=== PATIENT | female | born 1995 | race Caucasian/White ===

== ENCOUNTER 2017-06-07 01:04 | Emergency (ER) | payer BC, MEDICAID ==
[~2017-06-07] VITALS: Ht 172.7 cm; Wt 65.0 kg
[~2017-06-07 01:04] MED LIST: METR-1 PO; VITA65TA PO
[2017-06-07 01:06] VITALS: BP 120/59; PULSE 92; RESP 16; TEMP 98.1; O2SAT 99
[2017-06-07] MEDS ORDERED: ACETAMINOPHEN 325 MG TAB PO ONE (01:45)
[2017-06-07] MEDS ORDERED: METOCLOPRAMIDE INJ 10 MG in SODIUM CHLORIDE 0.9% INJ 50 ML IV ONE (01:45)
[2017-06-07] MEDS ORDERED: SODIUM CHLOR 0.9% 1000 ML INJ 1,000 ML IV ONE (01:45)
[2017-06-07 02:30] LABS: BASOPHIL % 0.2 % (0.0-2.0); EOSINOPHIL # 0.2 TH/MM3 (0-0.4); EOSINOPHIL % 1.4 % (0.0-4.0); HEMATOCRIT 38.1 % (35.0-46.0); HEMO FLAGS DIFF FINAL; LYMPH % 13.7 % (9.0-44.0); LYMPHOCYTE # 1.9 TH/MM3 (1.0-4.8); MEAN CELL VOLUME 88.3 FL (80.0-100.0); MEAN CORPUSCULAR HEMOGLOBIN 30.3 PG (27.0-34.0); MEAN CORPUSCULAR HGB CONC 34.3 % (32.0-36.0); MONO % 6.7 % (0.0-8.0); PLATELET COUNT 174 TH/MM3 (150-450); RED BLOOD COUNT 4.32 MIL/MM3 (4.00-5.30); RED CELL DISTRIBUTION WIDTH 12.3 % (11.6-17.2); WHITE BLOOD COUNT 14.1 TH/MM3 (4.0-11.0)
[2017-06-07 02:33] LABS: BACTERIA, URINE MOD /hpf; BLOOD, URINE NEG (NEG); COMMENT (UR) CULTURE INDICATED; CULTURE IF INDICATED CULTURE INDICATED; GLUCOSE,URINE NEG (NEG); KETONE, URINE 40 mg/dL (NEG); NITRITE,URINE NEG (NEG); PH, URINE 6.5 (5.0-8.5); SQUAMOUS EPITHELIAL CELL URINE 11 /hpf (0-5); URINE COLOR YELLOW (YELLW/STRAW)
[2017-06-07 02:49] LABS: ALT (GPT) 51 U/L (10-53); ANION GAP 8 MEQ/L (5-15); AST (GOT) 33 U/L (15-37); BICARBONATE 27.3 MEQ/L (21.0-32.0); BLOOD UREA NITROGEN 5 MG/DL (7-18); CHLORIDE 101 MEQ/L (98-107); GLOMERULAR FILTRATION RATE 201 ML/MIN (>89); POTASSIUM 3.4 MEQ/L (3.5-5.1); SODIUM (NA) 136 MEQ/L (136-145)
[2017-06-07 02:51] LABS: ALKALINE PHOSPHATASE 65 U/L (45-117); TOTAL BILIRUBIN ADULT 0.5 MG/DL (0.2-1.0)
[2017-06-07] MEDS ORDERED: AMOX875T PO (03:17)
--- NOTE | 2017-06-07 03:17 | PD ---
HPI Chief Complaint: GI Complaint Time Seen by Provider: : Travel History International Travel<30 days: No Contact w/Intl Traveler<30days: No Traveled to known affect area: No History of Present Illness HPI Patient is a 22-year-old female, 16 weeks , who comes in complaining of sore throat, body aches, enlarged lymph nodes. She says this is been going on for the past day. She also reports nausea and vomiting. She denies cough or runny nose. She has not had any chest pain. She has felt chilled, but has not had any fever. She denies any abdominal pain, vaginal bleeding or leakage of fluids. PFSH Past Medical History Immunizations Current: Yes Tetanus Vaccination: > 5 Years Influenza Vaccination: No ?: Social History Alcohol Use: No Tobacco Use: No Substance Use: No Allergies-Medications (Allergen,Severity, Reaction): Coded Allergies: No Known Allergies (Verified Adverse Reaction, Unknown, 06/07/17) Reported Meds & Prescriptions Reported Meds & Active Scripts Active Vitafol-Ob ( Vit W/ Ferrous Fumara) 65 Mg-1 Mg Tab 1 Tab PO DAILY 30 Days Flagyl (Metronidazole) 500 Mg Tab 500 Mg PO BID Review of Systems Except as stated in HPI: all other systems reviewed are Neg General / Constitutional: Positive: Chills HENT: Positive: Sore Throat, No: Headaches, Lightheadedness Cardiovascular: No: Chest Pain or Discomfort Respiratory: No: Shortness of Breath Gastrointestinal: Positive: Nausea, Vomiting, No: Abdominal Pain Genitourinary: No: Discharge, Vaginal Bleeding Musculoskeletal: No: Weakness, Edema Skin: No Rash, No Change in Pigmentation Neurologic: No: Weakness, Dizziness Physical Exam Narrative GENERAL: Awake and alert, in no acute distress. SKIN: Focused skin assessment warm/dry. HEAD: Atraumatic. Normocephalic. EYES: Pupils equal and round. No scleral icterus. ENT: Tonsils enlarged with exudates present. Mucous membranes pink and moist. NECK: Trachea midline. No JVD. Right sided anterior cervical lymphadenopathy. CARDIOVASCULAR: Regular rate and rhythm. No murmur appreciated. RESPIRATORY: No accessory muscle use. Clear to auscultation. Breath sounds equal bilaterally. GASTROINTESTINAL: Abdomen soft, non-tender, nondistended. MUSCULOSKELETAL: No obvious deformities. No clubbing. No cyanosis. No edema. NEUROLOGICAL: Awake and alert. No obvious cranial nerve deficits. Motor grossly within normal limits. Normal speech. PSYCHIATRIC: Appropriate mood and affect; insight and judgment normal. Data Data Last Documented VS Vital Signs Date Time Temp Pulse Resp B/P (MAP) Pulse Ox O2 Delivery O2 Flow Rate FiO2 06/07/17 01:06 98.1 92 16 120/59 (79) 99 Room Air Orders Orders Iv Access Insert/Monitor (06/07/17 01:43) Complete Blood Count With Diff (06/07/17:43) Comprehensive Metabolic Panel (06/07/17 01:43) Urinalysis - C+S If Indicated (06/07/17:43) Ed Urine Pregnancytest Poc (06/07/17:43) Influenzae A/B Antigen (06/07/17:43) Group A Rapid Strep Screen (06/07/17:43) Sodium Chlor 0.9% 1000 Ml Inj (Ns 1000 M (06/07/17 01:45) Acetaminophen (Tylenol) (06/07/17 01:45) Metoclopramide Inj (Reglan Inj) (06/07/17 01:45) Urine Culture (06/07/17 02:00) Labs Laboratory Tests Test 06/07/17 02:00 White Blood Count 14.1 TH/MM3 Red Blood Count 4.32 MIL/MM3 Hemoglobin 13.1 GM/DL Hematocrit 38.1 % Mean Corpuscular Volume 88.3 FL Mean Corpuscular Hemoglobin 30.3 PG Mean Corpuscular Hemoglobin Concent 34.3 % Red Cell Distribution Width 12.3 % Platelet Count 174 TH/MM3 Mean Platelet Volume 8.5 FL Neutrophils (%) (Auto) 78.0 % Lymphocytes (%) (Auto) 13.7 % Monocytes (%) (Auto) 6.7 % Eosinophils (%) (Auto) 1.4 % Basophils (%) (Auto) 0.2 % Neutrophils # (Auto) 11.0 TH/MM3 Lymphocytes # (Auto) 1.9 TH/MM3 Monocytes # (Auto) 0.9 TH/MM3 Eosinophils # (Auto) 0.2 TH/MM3 Basophils # (Auto) 0.0 TH/MM3 CBC Comment DIFF FINAL Differential Comment Urine Color YELLOW Urine Turbidity HAZY Urine pH 6.5 Urine Specific [place] 1.010 Urine Protein NEG mg/dL Urine Glucose (UA) NEG mg/dL Urine Ketones 40 mg/dL Urine Occult Blood NEG Urine Nitrite NEG Urine Bilirubin NEG Urine Urobilinogen LESS THAN 2.0 MG/DL Urine Leukocyte Esterase NEG Urine RBC 1 /hpf Urine WBC 3 /hpf Urine Squamous Epithelial Cells 11 /hpf Urine Bacteria MOD /hpf Microscopic Urinalysis Comment CULTURE INDICATED Blood Urea Nitrogen 5 MG/DL Creatinine 0.40 MG/DL Random Glucose 78 MG/DL Total Protein 6.5 GM/DL Albumin 3.2 GM/DL Calcium Level 8.3 MG/DL Alkaline Phosphatase 65 U/L Aspartate Amino Transf (AST/SGOT) 33 U/L Alanine Aminotransferase (ALT/SGPT) 51 U/L Total Bilirubin 0.5 MG/DL Sodium Level 136 MEQ/L Potassium Level 3.4 MEQ/L Chloride Level 101 MEQ/L Carbon Dioxide Level 27.3 MEQ/L Anion Gap 8 MEQ/L Estimat Glomerular Filtration Rate 201 ML/MIN [facility] Medical Decision Making Medical Screen Exam Complete: Yes Emergency Medical Condition: Yes Medical Record Reviewed: Yes Differential Diagnosis UTI versus strep pharyngitis versus influenza Narrative Course Patient is a 22-year-old female, 16 weeks , who comes in complaining of sore throat, nausea or vomiting. Exam shows enlarged tonsils with exudates. IV status, labs sent. Patient given IV fluids, Reglan, Tylenol. Labs show an elevated white blood cell count 14. Rapid strep test is positive. Influenza swab is negative. Patient reports feeling better. She'll be discharged with a prescription for amoxicillin. She is advised follow-up with her doctor. Advised to return to the ED as needed for any worsening symptoms. Diagnosis Primary Impression: Strep pharyngitis Patient Instructions: General Instructions, Strep Throat (ED) Additional Instructions: Take all of your antibiotic. Drink plenty of fluids. Take Tylenol as needed for pain or fever. Follow-up with her doctor. Return to the ED as needed for any worsening symptoms. Scripts Amoxicillin (Amoxicillin) 875 Mg Tab 875 MG PO BID for Infection for 10 Days, #20 TAB 0 Refills Prov: Farhana Mace MD 06/07/17 Disposition: DISCHARGE HOME Condition: Stable Farhana Mace MD Jun 07, 2017 03:17
== END 2017-06-07 03:49 | disposition home or self-care (01) ==
LOC: NEPE 01:04
DX: O26.892 Other specified pregnancy related conditions, second trimester (principal); J02.0 Streptococcal pharyngitis; O21.9 Vomiting of pregnancy, unspecified; Z3A.16 16 weeks gestation of pregnancy; Z79.899 Other long term (current) drug therapy
CPT/HCPCS: 80053; 81001; 84703; 85025; 87086; 87804; 87880; 96365; 99284; J2765; J7030

== ENCOUNTER 2017-06-20 13:21 | Inpatient (IN) | payer MEDICAID, OTHER ==
[~2017-06-20] VITALS: Ht 172.7 cm; Wt 63.5 kg
[~2017-06-20 13:21] MED LIST changes: +AMOX875T PO
[2017-06-20 13:40] VITALS: BP 108/58; PULSE 92; RESP 16; TEMP 97.8; O2SAT 100
[2017-06-20] MEDS ORDERED: PROZ20CA11 PO (13:41)
[2017-06-20 14:25] LABS: AUTOMATED NEUTROPHIL # 8.2 TH/MM3 (1.8-7.7); BASOPHIL % 0.3 % (0.0-2.0); EOSINOPHIL # 0.1 TH/MM3 (0-0.4); EOSINOPHIL % 1.3 % (0.0-4.0); HEMATOCRIT 37.3 % (35.0-46.0); HEMO FLAGS DIFF FINAL; LYMPH % 17.8 % (9.0-44.0); MEAN CELL VOLUME 90.1 FL (80.0-100.0); MEAN CORPUSCULAR HEMOGLOBIN 31.4 PG (27.0-34.0); MEAN CORPUSCULAR HGB CONC 34.9 % (32.0-36.0); MONO % 7.3 % (0.0-8.0); NEUT % 73.3 % (16.0-70.0); PLATELET COUNT 197 TH/MM3 (150-450); RED BLOOD COUNT 4.14 MIL/MM3 (4.00-5.30); RED CELL DISTRIBUTION WIDTH 13.1 % (11.6-17.2); WHITE BLOOD COUNT 11.2 TH/MM3 (4.0-11.0)
[2017-06-20 14:28] LABS: BACTERIA, URINE RARE /hpf; BLOOD, URINE NEG (NEG); GLUCOSE,URINE NEG (NEG); KETONE, URINE TRACE mg/dL (NEG); MUCUS URINE FEW /lpf (OCC); NITRITE,URINE NEG (NEG); PH, URINE 5.5 (5.0-8.5); SQUAMOUS EPITHELIAL CELL URINE 19 /hpf (0-5); TRANSITIONAL EPI CELLS, URINE <1 /hpf; URINE COLOR YELLOW (YELLW/STRAW)
[2017-06-20 14:30] LABS: COMMENT (UR) CULT NOT INDICATED; CULTURE IF INDICATED CULT NOT INDICATED
[2017-06-20 14:45] LABS: ALT (GPT) 178 U/L (10-53); ANION GAP 7 MEQ/L (5-15); AST (GOT) 128 U/L (15-37); BICARBONATE 26.5 MEQ/L (21.0-32.0); BLOOD UREA NITROGEN 6 MG/DL (7-18); CHLORIDE 103 MEQ/L (98-107); GLOMERULAR FILTRATION RATE 207 ML/MIN (>89); POTASSIUM 3.8 MEQ/L (3.5-5.1); SODIUM (NA) 136 MEQ/L (136-145)
[2017-06-20 14:47] LABS: ALCOHOL LESS THAN 3 MG/DL (0-5)
[2017-06-20 15:02] LABS: ALKALINE PHOSPHATASE 51 U/L (45-117); BETA HCG QUANT 18306 MIU/ML (0-5); TOTAL BILIRUBIN ADULT 0.3 MG/DL (0.2-1.0)
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
--- NOTE | 2017-06-20 17:53 | PD ---
History of Present Illness Chief Complaint: Psychiatric Symptoms Time Seen by Provider: 17:30 Travel History International Travel<30 Days: No Contact w/Intl Traveler<30days: No Known affected area: No Legal Status Legal Status: Hernandez Act Hernandez Act Signed By: Asael Skelton Hernandez Act Comment: OFFICER: SARMAD PARR # [id number], CASE # [id number] History of Present Illness: History of Present Illness HPI 22-year-old female with reported history of depression and anxiety who is reportedly 18 weeks . She is brought in by local police under the Hernandez act for reported suicidal ideation. She reportedly wanted to cut her wrists due to life stressors. The Hernandez act also alleges that there is suspicion that she has been using narcotics. Patient reports that she has been having financial stressors and is behind in her rent, car payment and that she has recently lost her job. She states that she called her father to ask for him to his help and that she was emotional during the call. The father then contacted the police and the police placed her under Hernandez act. The patient is seen. Electronic medical record is reviewed. No previous contact with [facility] psychiatry. Labs are reviewed. Current toxicology is positive for amphetamines, benzos, cocaine, cannabinoids. The patient is seen in J pod. She is alert and oriented. There is no evidence of any psychosis, no joselyn, or hypomania. She denies any suicidal or homicidal ideation. She denies feeling depressed or anxious. She denies the use of any narcotics and becomes extremely agitated when she is confronted with her toxicology report. The patient demands to be released but gives authorization for me to speak with her father and her mother. Telephone call to her mother, Urban at [phone] with patient's verbal consent. Mother reports that the patient has struggled with depression and anxiety since her teenage years. She has been prescribed Prozac but that she has stopped taking it for several months. Mom also reports that she is concerned over the patient since she has told everyone that she wanted to . Mother also reports that she is aware that the patient takes Xanax that she purchases from friends. Telephone call to her father Akira Cr. The father reports that he believes his daughter has been spiraling out of control for the last 2 weeks. That she has told several people that she wants to harm herself. She also disappears for several days at a time and they are not aware where of her whereabouts. He is concerned and is aware that she may be using substances. The father is advised regarding options including filing a [place] act. PFSH Past Medical History Anxiety: Yes Depression: Yes Psychiatric: Yes Immunizations Current: Yes Tetanus Vaccination: < 5 Years Influenza Vaccination: No ?: LMP: 02/26/17 : 1 Past Surgical History Surgical History: No Previous Surgery Psychiatric History Psychiatric History Hx Psychiatric Treatment: PT STATES SHE HAS ANXIETY AND HAS BEEN ON PROZAC FOR YEARS. PT STATES SHE TAKES MEDS PRESCRIBED. History of Inpatient Treatment: No Guns or firearms in home: No Social History Single female. Lives with her boyfriend. 18-1/2 weeks . Has completed an AA degree. Hx Alcohol Use: No Hx Tobacco Use: No (QUIT 3 MONTHS AGO) Hx Substance Use: Yes Substance Use Type: Alcohol, Marijuana, Amphetamines-Stimulants, Benzos (Valium ,Xanax), Cocaine Hx of Substance Use Treatment: No Family Psychiatric History Unknown Allergies-Medications (Allergen,Severity, Reaction): Coded Allergies: No Known Allergies (Verified Adverse Reaction, Unknown, 06/20/17) Reported Meds & Prescriptions Reported Meds & Active Scripts Active Vitafol-Ob ( Vit W/ Ferrous Fumara) 65 Mg-1 Mg Tab 1 Tab PO DAILY 30 Days Reported Prozac (Fluoxetine HCl) 20 Mg Cap 20 Mg PO DAILY Review of Systems Except as stated in HPI: all other systems reviewed are Neg Mental Status Examination Appearance: Appropriate Consciousness: Alert Orientation: x4 Motor Activity: Normal gait Speech: Unremarkable Language: Adequate Fund of Knowledge: Adequate Attention and Concentration: Adequate Memory: Unremarkable Mood: Appropriate Affect: Appropriate Thought Process & Associations: Intact Thought Content: Appropriate Hallucination Type: None Delusion Type: None Suicidal Ideation: No Suicidal Plan: No Suicidal Intention: No Homicidal Ideation: No Homicidal Plan: No Homicidal Intention: No Insight: Poor Judgment: Impulsive MDM Medical Decision Making Medical Record Reviewed: Yes Assessment/Plan 22-year-old female with history of depression who presents under Hernandez act initiated after her father contacted the police department. The father is concerned because the patient has made suicidal statements that she wanted to cut her wrists. There is also suspicion of narcotic use. The patient denies any suicidal or homicidal ideation. After collateral information was obtained and after results of current toxicology patient was informed that she was going to be retained here for further observation as well as to attempt to get her into [facility] detox. After patient was informed of this she became agitated, began to bang her head against the wall, was yelling and screaming, and makes verbal threats that she would kill herself while she is the hospital. Dr. Yousif is present and gave orders for ETO. Patient was placed in restraints due to potential for self injury. Orders Orders Beta Hcg (Quant/Titer) (06/20/17 13:45) Complete Blood Count With Diff (06/20/17 13:45) Comprehensive Metabolic Panel (06/20/17 13:45) Urinalysis - C+S If Indicated (06/20/17 13:45) Ecg Monitoring (06/20/17 13:45) Drug Screen, Random Urine (06/20/17 13:45) Alcohol (Ethanol) (06/20/17 13:45) Psych Screen (06/20/17 13:45) Complete Rh (06/20/17 14:34) Heart Tones (06/20/17 14:34) Results Vital Signs Date Time Temp Pulse Resp B/P (MAP) Pulse Ox O2 Delivery O2 Flow Rate FiO2 06/20/17 13:53 89 16 06/20/17 13:40 97.8 92 16 108/58 (75) 100 Laboratory Tests Test 06/20/17 13:55 White Blood Count 11.2 Red Blood Count 4.14 Hemoglobin 13.0 Hematocrit 37.3 Mean Corpuscular Volume 90.1 Mean Corpuscular Hemoglobin 31.4 Mean Corpuscular Hemoglobin Concent 34.9 Red Cell Distribution Width 13.1 Platelet Count 197 Mean Platelet Volume 8.8 Neutrophils (%) (Auto) 73.3 Lymphocytes (%) (Auto) 17.8 Monocytes (%) (Auto) 7.3 Eosinophils (%) (Auto) 1.3 Basophils (%) (Auto) 0.3 Neutrophils # (Auto) 8.2 Lymphocytes # (Auto) 2.0 Monocytes # (Auto) 0.8 Eosinophils # (Auto) 0.1 Basophils # (Auto) 0.0 CBC Comment DIFF FINAL Differential Comment Urine Color YELLOW Urine Turbidity HAZY Urine pH 5.5 Urine Specific [place] 1.020 Urine Protein 30 Urine Glucose (UA) NEG Urine Ketones TRACE Urine Occult Blood NEG Urine Nitrite NEG Urine Bilirubin NEG Urine Urobilinogen LESS THAN 2.0 Urine Leukocyte Esterase NEG Urine RBC 1 Urine WBC 3 Urine Squamous Epithelial Cells 19 Urine Transitional Epithelial Cells <1 Urine Bacteria RARE Urine Mucus FEW Microscopic Urinalysis Comment CULT NOT INDICATED Blood Urea Nitrogen 6 Creatinine 0.39 Random Glucose 76 Total Protein 6.7 Albumin 3.2 Calcium Level 9.0 Alkaline Phosphatase 51 Aspartate Amino Transf (AST/SGOT) 128 Alanine Aminotransferase (ALT/SGPT) 178 Total Bilirubin 0.3 Sodium Level 136 Potassium Level 3.8 Chloride Level 103 Carbon Dioxide Level 26.5 Anion Gap 7 Estimat Glomerular Filtration Rate 207 Human Chorionic Gonadotropin, Quant [id number] Ethyl Alcohol Level LESS THAN 3 Diagnosis Primary Impression: Substance abuse Additional Impression: Adjustment disorder with mixed disturbance of emotions and conduct Condition: Stable Problem Qualifiers Luz Thomason [facility] Jun 20, 2017 17:53
[2017-06-20] MEDS ORDERED: diphenhydrAMINE HCL 50 MG/ML VIAL IM ONE (20:30)
[2017-06-20] MEDS ORDERED: ZIPRASIDONE MESYLATE 20 MG VIAL IM ONE (20:30)
--- NOTE | 2017-06-20 20:36 | HHI.PYPN ---
Subjective Remarks Pt. seen by this MD approx 830pm. Banging her head, highly agitated. Placed in restraints. This MD Called Dr. Goins to discuss chemical restraints and ordered Geodon and Benadryl IM. Pt. noted to be positive for benzos, opiates, amphetamines and canabanoids. Review of Systems Psychiatric: COMPLAINS OF: Anxiety, Agitation Except as stated in HPI: all other systems reviewed are Neg Mental Status Examination Appearance: Disheveled, Other Consciousness: Alert Orientation: x4 Motor Activity: Normal gait Speech: Unremarkable Language: Adequate Fund of Knowledge: Adequate Attention and Concentration: Adequate Memory: Unremarkable Mood: Angry Affect: Labile Thought Process & Associations: Intact Thought Content: Appropriate Hallucination Type: None Delusion Type: None Suicidal Ideation: No Suicidal Plan: No Suicidal Intention: No Homicidal Ideation: No Homicidal Plan: No Homicidal Intention: No Insight: Poor Judgment: Poor Results Labs Test 06/20/17 13:55 White Blood Count 11.2 TH/MM3 Red Blood Count 4.14 MIL/MM3 Hemoglobin 13.0 GM/DL Hematocrit 37.3 % Mean Corpuscular Volume 90.1 FL Mean Corpuscular Hemoglobin 31.4 PG Mean Corpuscular Hemoglobin Concent 34.9 % Red Cell Distribution Width 13.1 % Platelet Count 197 TH/MM3 Mean Platelet Volume 8.8 FL Neutrophils (%) (Auto) 73.3 % Lymphocytes (%) (Auto) 17.8 % Monocytes (%) (Auto) 7.3 % Eosinophils (%) (Auto) 1.3 % Basophils (%) (Auto) 0.3 % Neutrophils # (Auto) 8.2 TH/MM3 Lymphocytes # (Auto) 2.0 TH/MM3 Monocytes # (Auto) 0.8 TH/MM3 Eosinophils # (Auto) 0.1 TH/MM3 Basophils # (Auto) 0.0 TH/MM3 CBC Comment DIFF FINAL Differential Comment Urine Color YELLOW Urine Turbidity HAZY Urine pH 5.5 Urine Specific [place] 1.020 Urine Protein 30 mg/dL Urine Glucose (UA) NEG mg/dL Urine Ketones TRACE mg/dL Urine Occult Blood NEG Urine Nitrite NEG Urine Bilirubin NEG Urine Urobilinogen LESS THAN 2.0 MG/DL Urine Leukocyte Esterase NEG Urine RBC 1 /hpf Urine WBC 3 /hpf Urine Squamous Epithelial Cells 19 /hpf Urine Transitional Epithelial Cells <1 /hpf Urine Bacteria RARE /hpf Urine Mucus FEW /lpf Microscopic Urinalysis Comment CULT NOT INDICATED Blood Urea Nitrogen 6 MG/DL Creatinine 0.39 MG/DL Random Glucose 76 MG/DL Total Protein 6.7 GM/DL Albumin 3.2 GM/DL Calcium Level 9.0 MG/DL Alkaline Phosphatase 51 U/L Aspartate Amino Transf (AST/SGOT) 128 U/L Alanine Aminotransferase (ALT/SGPT) 178 U/L Total Bilirubin 0.3 MG/DL Sodium Level 136 MEQ/L Potassium Level 3.8 MEQ/L Chloride Level 103 MEQ/L Carbon Dioxide Level 26.5 MEQ/L Anion Gap 7 MEQ/L Estimat Glomerular Filtration Rate 207 ML/MIN Human Chorionic Gonadotropin, Quant 08689 MIU/ML Urine Opiates Screen NEG Urine Barbiturates Screen NEG Urine Amphetamines Screen POS Urine Benzodiazepines Screen POS Urine Cocaine Screen POS Urine Cannabinoids Screen POS Ethyl Alcohol Level LESS THAN 3 MG/DL Vitals/IOs Vital Signs Date Time Temp Pulse Resp B/P (MAP) Pulse Ox O2 Delivery O2 Flow Rate FiO2 06/20/17 13:53 89 16 06/20/17 13:40 97.8 108/58 (75) 100 Assessment & Plan Problem List: (1) Adjustment disorder with mixed disturbance of emotions and conduct ICD Codes: F43.25 - Adjustment disorder with mixed disturbance of emotions and conduct Assessment & Plan Estimated LOS: Will utilize restraints and meds to keep pt. safe. Justification for Cont. Inpt. Danger to self and unborn child. Anthony Yousif MD Jun 20, 2017 20:35
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
[2017-06-20 21:02] VITALS: BP 108/56; PULSE 101; RESP 18; TEMP 98.4; O2SAT 99
[2017-06-21 02:00] VITALS: BP 91/53; PULSE 87; RESP 16; O2SAT 99
[2017-06-21 05:58] VITALS: BP 92/50; PULSE 98; RESP 16; O2SAT 98
[2017-06-21] MEDS ORDERED: MULTIVIT/MIN/PREN/FOL AC/IRON PRENATAL TAB PO ONE (09:45)
[2017-06-21] MEDS ORDERED: LORazepam 1 MG TAB PO PRN (10:30)
[2017-06-21] MEDS ORDERED: ALUMINUM/MAGNESIUM/SIMETH 30 ML CUP PO PRN (10:30)
[2017-06-21] MEDS ORDERED: MAGNESIUM HYDROXIDE SUSP 30 ML CUP PO PRN (10:30)
[2017-06-21] MEDS ORDERED: ACETAMINOPHEN 325 MG TAB PO PRN (10:30)
[2017-06-21] MEDS ORDERED: LORazepam 2 MG/ML VIAL IM PRN (10:30)
--- NOTE | 2017-06-21 11:35 | HHI.HP ---
Provisional Diagnosis Admission Date Jun 21, 2017 at 10:32 [place] I. Adjustment disorder with mixed disturbance of emotion and conduct Certification of Person's Competence To Provide Express and Informed Consent I have personally examined Marta Cr , a person being served at [facility] on, Jun 21, 2017 11:27. Express and informed consent means consent voluntarily given in writing, by a competent person, after sufficient explanation and disclosure of the subject matter involved to enable the person to make a knowing and willful decision without any element of force, fraud, deceit, duress, or other form of constraint or coercion. This person is 18 years of age or older, is not now known to be incompetent to consent to treatment with a guardian advocate, and does not have a health care surrogate or proxy currently making medical treatment decisions. I have found this person to be one of the following: [x] Competent to provide express and informed consent, as defined above, for voluntary admission to this facility and is competent to provide express and informed consent for treatment. He/she has the consistent capacity to make well reasoned, willful, and knowing decisions concerning his or her medical or mental health treatment. The person fully and consistently understands the purpose of the admission for examination/placement and is fully capable of personally exercising all rights assured [place] Incompetent to provide express and informed consent to voluntary admission, and this is incompetent to provide express and informed consent to treatment. The person must be transferred to involuntary status and a petition for a guardian advocate filed with the Circuit Court. [] Refusing to provide express and informed consent to voluntary admission but is competent to provide express and informed consent for treatment. The person must be discharged or transferred to involuntary status. Form shall be completed within 24 hours of a person's arrival at the receiving facility and filed in the clinical record of each person: 1. Admitted on a voluntary basis 2. Permitted to provide express and informed consent to his/her own treatment 3. Allowed to transfer from involuntary to voluntary status 4. Prior to permitting a person to consent to his or her own treatment after having been previously found incompetent to consent to treatment. History of Present Illness Capacity: Has Capacity HPI 22-year-old female 8 weeks , brought in under a Hernandez act completed by law enforcement after making suicidal threats to cut her wrists. Patient apparently has multiple stressors including financial stressors, housing stressors, possible loss of job, etc. According to the patient's father, she has been letting him and others know that she is suicidal. Our nurse practitioner, Luz Thomason, spoke with the patient's mother, who reiterated this same information. This physician saw the patient last night when she was very upset and very agitated about being Hernandez acted, and was physically banging her head against the wall. She required both physical and chemical restraints. The patient's toxicology screen is positive for benzodiazepines, amphetamine, cocaine, and cannabinoids. The patient described multiple symptoms of depression, including depressed mood , anhedonia, anxiety, suicidal ideation with plan, diminished self-esteem, feelings of hopelessness and helplessness, diminished energy, tearfulness, etc. these symptoms have been going on for several weeks and the patient characterizes them as "pre- depression". Review of Systems Psychiatric: COMPLAINS OF: Anxiety, Depression, Suicidal Ideation Except as stated in HPI: all other systems reviewed are Neg Past Psych History Psychological trauma history Patient reports some history of psychological trauma in the past. She has declined to provide details. Violence risk - others (6 mos) Moderate Violence risk - self (6 mos) High Substance Abuse History Drugs/Alcohol past 12 months Cocaine, amphetamines, benzos and cannabinoids. Patient has apparently been buying Xanax. Past Family Social History Coded Allergies: No Known Allergies (Verified Adverse Reaction, Unknown, 06/20/17) Active Scripts Vit W/ Ferrous Fumara (Vitafol-Ob) 65 Mg-1 Mg Tab, 1 TAB PO DAILY for 30 Days, #30 TAB 3 Refills Prov:Vidhya Prather CNM [facility] 05/25/17 Reported Medications Fluoxetine (Prozac) 20 Mg Cap, 20 MG PO DAILY, #30 CAP 0 Refills 06/20/17 Discontinued Scripts Amoxicillin (Amoxicillin) 875 Mg Tab, 875 MG PO BID for Infection for 10 Days, # 20 TAB 0 Refills Prov:Farhana Mace MD 06/07/17 Metronidazole (Flagyl) 500 Mg Tab, 500 MG PO BID for Infection, #14 TAB 0 Refills Prov:Vidhya Prather CNM [facility] 05/25/17 Current Medications Medications (Trade) Dose Ordered Sig/Zan Route Start Time Stop Time Status Last Admin (Ativan) 1 mg Q6H PRN PO 06/21/17 10:30 (Ativan Inj) 1 mg Q6H PRN IM 06/21/17 10:30 (Tylenol) 650 mg Q4H PRN PO 06/21/17 10:30 (Milk Of Magnesia Liq) 30 ml DAILY PRN PO 06/21/17 10:30 (Mag-Al Plus Susp Liq) 30 ml Q6H PRN PO 06/21/17 10:30 Family Psych History Positive for mood and anxiety disorders. Social History Patient fears she is now unemployed, being evicted and without money. She has contacted her parents for assistance but father was concerned about her suicidal threats, as was mother. Obviously the patient is abusing multiple drugs. 18 weeks intrauterine and patient was evaluated yesterday. Patient's Strengths (min. 2) Verbal and has access to healthcare Physical Exam GENERAL: SKIN: Warm and dry. HEAD: Normocephalic. EYES: No scleral icterus. No injection or drainage. NECK: Supple, trachea midline. No JVD or lymphadenopathy. CARDIOVASCULAR: Regular rate and rhythm without murmurs, gallops, or rubs. RESPIRATORY: Breath sounds equal bilaterally. No accessory muscle use. GASTROINTESTINAL: Abdomen soft, non-tender, nondistended. MUSCULOSKELETAL: No cyanosis, or edema. BACK: Nontender without obvious deformity. No CVA tenderness. Vital Signs Vital Signs Date Time Temp Pulse Resp B/P (MAP) Pulse Ox O2 Delivery O2 Flow Rate FiO2 06/21/17 05:58 98 16 92/50 (64) 98 Room Air 06/20/17 21:02 98.4 Lab Results Test 06/20/17 13:55 White Blood Count 11.2 TH/MM3 Red Blood Count 4.14 MIL/MM3 Hemoglobin 13.0 GM/DL Hematocrit 37.3 % Mean Corpuscular Volume 90.1 FL Mean Corpuscular Hemoglobin 31.4 PG Mean Corpuscular Hemoglobin Concent 34.9 % Red Cell Distribution Width 13.1 % Platelet Count 197 TH/MM3 Mean Platelet Volume 8.8 FL Neutrophils (%) (Auto) 73.3 % Lymphocytes (%) (Auto) 17.8 % Monocytes (%) (Auto) 7.3 % Eosinophils (%) (Auto) 1.3 % Basophils (%) (Auto) 0.3 % Neutrophils # (Auto) 8.2 TH/MM3 Lymphocytes # (Auto) 2.0 TH/MM3 Monocytes # (Auto) 0.8 TH/MM3 Eosinophils # (Auto) 0.1 TH/MM3 Basophils # (Auto) 0.0 TH/MM3 CBC Comment DIFF FINAL Differential Comment Urine Color YELLOW Urine Turbidity HAZY Urine pH 5.5 Urine Specific [place] 1.020 Urine Protein 30 mg/dL Urine Glucose (UA) NEG mg/dL Urine Ketones TRACE mg/dL Urine Occult Blood NEG Urine Nitrite NEG Urine Bilirubin NEG Urine Urobilinogen LESS THAN 2.0 MG/DL Urine Leukocyte Esterase NEG Urine RBC 1 /hpf Urine WBC 3 /hpf Urine Squamous Epithelial Cells 19 /hpf Urine Transitional Epithelial Cells <1 /hpf Urine Bacteria RARE /hpf Urine Mucus FEW /lpf Microscopic Urinalysis Comment CULT NOT INDICATED Blood Urea Nitrogen 6 MG/DL Creatinine 0.39 MG/DL Random Glucose 76 MG/DL Total Protein 6.7 GM/DL Albumin 3.2 GM/DL Calcium Level 9.0 MG/DL Alkaline Phosphatase 51 U/L Aspartate Amino Transf (AST/SGOT) 128 U/L Alanine Aminotransferase (ALT/SGPT) 178 U/L Total Bilirubin 0.3 MG/DL Sodium Level 136 MEQ/L Potassium Level 3.8 MEQ/L Chloride Level 103 MEQ/L Carbon Dioxide Level 26.5 MEQ/L Anion Gap 7 MEQ/L Estimat Glomerular Filtration Rate 207 ML/MIN Human Chorionic Gonadotropin, Quant 52405 MIU/ML Urine Opiates Screen NEG Urine Barbiturates Screen NEG Urine Amphetamines Screen POS Urine Benzodiazepines Screen POS Urine Cocaine Screen POS Urine Cannabinoids Screen POS Ethyl Alcohol Level LESS THAN 3 MG/DL Mental Status Examination Appearance: Appropriate Consciousness: Alert Orientation: x4 Motor Activity: Normal gait Speech: Unremarkable Language: Adequate Fund of Knowledge: Adequate Attention and Concentration: Adequate Memory: Unremarkable Mood: Sad, Anxious, Irritable Affect: Appropriate Thought Process & Associations: Intact Thought Content: Appropriate Hallucination Type: None Delusion Type: None Suicidal Ideation: Yes Suicidal Plan: Yes Suicidal Intention: No Homicidal Ideation: No Homicidal Plan: No Homicidal Intention: No Insight: Poor Judgment: Impulsive Assessment & Plan Problem List: (1) Adjustment disorder with mixed disturbance of emotions and conduct ICD Codes: F43.25 - Adjustment disorder with mixed disturbance of emotions and conduct Assessment & Plan Estimated LOS: days. 22-year-old female brought in under a Hernandez act for suicidal behavior. Patient abusing drugs while in the initial term of . Patient making suicidal threats and has multiple stressors. She is felt to be at high risk for self-harm and certainly her drug use is harmful to the unborn child. For these reasons she is being admitted for further evaluation and treatment. This physician also spoke with Dr. Odilia morocho about the possibility of the patient entering project [place]. Dr. Naima mroocho will consult on this case. This physician has ordered a CBC and comprehensive metabolic panel to determine if any infectious process or metabolic process is causing or contributing to the patient's depression. Additionally, this physician ordered a thyroid- stimulating hormone level, vitamin B-12 level and vitamin D level, again to determine if any deficiencies in these areas is causing or contributing to the patient's depression. This physician has also ordered an EKG to determine the patient's cardiac conduction status, prior to making any significant changes in her psychotropic medicines. This physician spoke to the patient's nurse last night, Katelin, regarding the patient's behavior. Case management is also being involved to assist with further information gathering and disposition planning. Anthony Yousif MD Jun 21, 2017 11:35
[2017-06-21 12:12] VITALS: BP 101/54; PULSE 94; RESP 18; TEMP 97.7; O2SAT 98
[2017-06-21 16:54] VITALS: BP 133/60; PULSE 94; RESP 18; TEMP 98.1; O2SAT 98
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
[2017-06-21] MEDS: MULTIVIT/MIN/PREN/FOL AC/IRON PRENATAL TAB PO SCH (18:45)
[2017-06-22 06:40] VITALS: BP 104/48; PULSE 72; RESP 16; TEMP 98; O2SAT 96
[2017-06-22] MEDS: MULTIVIT/MIN/PREN/FOL AC/IRON PRENATAL TAB PO SCH (09:00)
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
[2017-06-22 18:00] VITALS: BP 107/57; PULSE 94; RESP 20; TEMP 98.5; O2SAT 94
[2017-06-23 06:07] VITALS: BP 95/46; PULSE 82; RESP 16; TEMP 98.3
[2017-06-23 08:00] LABS: AUTOMATED NEUTROPHIL # 6.4 TH/MM3 (1.8-7.7); BASOPHIL % 0.3 % (0.0-2.0); EOSINOPHIL # 0.2 TH/MM3 (0-0.4); EOSINOPHIL % 1.6 % (0.0-4.0); HEMATOCRIT 37.8 % (35.0-46.0); HEMO FLAGS DIFF FINAL; LYMPH % 22.1 % (9.0-44.0); LYMPHOCYTE # 2.1 TH/MM3 (1.0-4.8); MEAN CELL VOLUME 88.5 FL (80.0-100.0); MEAN CORPUSCULAR HEMOGLOBIN 30.4 PG (27.0-34.0); MEAN CORPUSCULAR HGB CONC 34.4 % (32.0-36.0); MONO % 8.8 % (0.0-8.0); NEUT % 67.2 % (16.0-70.0); PLATELET COUNT 202 TH/MM3 (150-450); RED BLOOD COUNT 4.27 MIL/MM3 (4.00-5.30); RED CELL DISTRIBUTION WIDTH 12.6 % (11.6-17.2); WHITE BLOOD COUNT 9.6 TH/MM3 (4.0-11.0)
[2017-06-23 08:07] LABS: ANION GAP 8 MEQ/L (5-15); AST (GOT) 20 U/L (15-37); BLOOD UREA NITROGEN 6 MG/DL (7-18); CHLORIDE 102 MEQ/L (98-107); GLOMERULAR FILTRATION RATE 185 ML/MIN (>89); POTASSIUM 3.3 MEQ/L (3.5-5.1); SODIUM (NA) 137 MEQ/L (136-145)
[2017-06-23 08:08] LABS: ALT (GPT) 86 U/L (10-53)
[2017-06-23 08:10] LABS: ALKALINE PHOSPHATASE 53 U/L (45-117); TOTAL BILIRUBIN ADULT 0.5 MG/DL (0.2-1.0)
[2017-06-23] MEDS: MULTIVIT/MIN/PREN/FOL AC/IRON PRENATAL TAB PO SCH (08:24)
--- NOTE | 2017-06-23 08:48 | HHI.DS ---
Psychiatry Discharge Summary Inpatient Psychiatric care?: Yes Advance Directive: No Reason Not Provided: Due to Patient Condition Mental Health AdvanceDirective: No Health Care Proxy: No Admission Admission Date Jun 21, 2017 at 10:32 Admission Diagnosis: (1) Adjustment disorder with mixed disturbance of emotions and conduct ICD Code: F43.25 - Adjustment disorder with mixed disturbance of emotions and conduct Brief History 22-year-old female 8 weeks , brought in under a Hernandez act completed by law enforcement after making suicidal threats to cut her wrists. Patient apparently has multiple stressors including financial stressors, housing stressors, possible loss of job, etc. According to the patient's father, she has been letting him and others know that she is suicidal. Our nurse practitioner, Luz Thomason, spoke with the patient's mother, who reiterated this same information. This physician saw the patient last night when she was very upset and very agitated about being Hernandez acted, and was physically banging her head against the wall. She required both physical and chemical restraints. The patient's toxicology screen is positive for benzodiazepines, amphetamine, cocaine, and cannabinoids. The patient described multiple symptoms of depression, including depressed mood , anhedonia, anxiety, suicidal ideation with plan, diminished self-esteem, feelings of hopelessness and helplessness, diminished energy, tearfulness, etc. these symptoms have been going on for several weeks and the patient characterizes them as "pre- depression". Tobacco Use In Past 30 Days: No Tobacco Past 30 Days Alcohol Use: Never Hospital Course Patient was admitted to a locked, inpatient psychiatric unit. An obstetric consultation was obtained as the patient is . Appropriate precautions were in place throughout patient's hospital stay. Patient was seen and examined on the unit by psychiatry and also visited by counselor. Patient was started on no scheduled psychotropics. Presenting behavioral disturbance resolved quickly, and it seems likely this was wholly substance induced. There was no evidence of any suicidality or homicidality on the inpatient unit. Reassuring collateral was obtained by counselor from the patient's boyfriend. On the day of discharge: Patient seen and examined with nurse. Chart reviewed. Case discussed with counselor and nurse. No behavioral issues overnight. On my examination today, the patient is requesting discharge from the inpatient psychiatric unit today. She is calm and cooperative with examination. She denies any suicidal or homicidal ideation, intent or plan on direct questioning and contracts for safety. I can elicit no depressive symptoms, no low mood, no hopelessness/worthlessness/morbid guilt. I can elicit no hypomanic or manic symptoms. She denies any audiovisual hallucinations. I can elicit no delusional material. There is no evidence of any impairment in reality construction. She has no physical complaints. Now that her substance intoxication has resolved, there is no evidence of any unstable mental illness in this patient at this time. Suicide and violence risk assessment on day of discharge both suggest lower imminent risk. Patient's level of function is adequate for outpatient care. Substance use constitutes a chronic risk factor, and I have strongly recommended that the patient pursue chemical dependency evaluation and treatment on an outpatient basis, and the counselor will refer the patient for this service on discharge. The patient does not meet criteria for involuntary psychiatric hospitalization at this time. Her Hernandez act will this afternoon. She is requesting discharge from the inpatient psychiatric unit today. I have offered ongoing voluntary psychiatric hospitalization for observation, but she has declined. I have no basis to retain the patient on the inpatient unit past the expiration of her Hernandez act. The patient will therefore be discharged home today with psychiatric follow-up as arranged by counselor. Patient is also to follow-up with primary care and with obstetrics. I have counseled the patient to abstain from substances of abuse. I have counseled the patient regarding warning signs for need to return to the psychiatric emergency room as part of a general safety plan. The patient 's potassium was repleted prior to discharge as she is mildly hypokalemic, and I have ordered a repeat BMP in a week. Results Blood Pressure 95 / 46 Vital Signs Date Time Temp Pulse Resp B/P (MAP) Pulse Ox O2 Delivery O2 Flow Rate FiO2 06/23/17 06:07 98.3 82 16 95/46 (62) 06/22/17 18:00 94 06/21/17 12:12 Room Air Laboratory Tests Test 06/20/17 13:55 06/23/17 07:20 White Blood Count 11.2 TH/MM3 (4.0-11.0) Neutrophils (%) (Auto) 73.3 % (16.0-70.0) Neutrophils # (Auto) 8.2 TH/MM3 (1.8-7.7) Urine Turbidity HAZY (CLEAR) Urine Protein 30 mg/dL (NEG-TRACE) Urine Ketones TRACE mg/dL (NEG) Urine Bacteria RARE /hpf (NONE) Urine Mucus FEW /lpf (OCC) Blood Urea Nitrogen 6 MG/DL (7-18) 6 MG/DL (7-18) Creatinine 0.39 MG/DL (0.50-1.00) 0.43 MG/DL (0.50-1.00) Albumin 3.2 GM/DL (3.4-5.0) 3.1 GM/DL (3.4-5.0) Aspartate Amino Transf (AST/SGOT) 128 U/L (15-37) Alanine Aminotransferase (ALT/SGPT) 178 U/L (10-53) 86 U/L (10-53) Human Chorionic Gonadotropin, Quant 02361 MIU/ML (0-5) Urine Amphetamines Screen POS (NEG) Urine Benzodiazepines Screen POS (NEG) Urine Cocaine Screen POS (NEG) Urine Cannabinoids Screen POS (NEG) Monocytes (%) (Auto) 8.8 % (0.0-8.0) Potassium Level 3.3 MEQ/L (3.5-5.1) Summary of Procedures None done Imaging None done Pending results at discharge: No Medications # of Antipsychotic meds at D/C: 0 Approp Antipsych med options 1 - Minimum of three failed multiple trials of monotherapy. 2 - Documented plan to taper to monotherapy due to previous use of multiple meds OR cross-taper in progress at D/C. 3 - Documentation of augmentation of Clozapine. 4 - Justification other than those listed in allowable values 1-3, document here : Discharge Discharge Date: Jun 23, 2017 Discharge Diagnosis: (1) Adjustment disorder with mixed disturbance of emotions and conduct Diagnosis: Principal (resolved) ICD Code: F43.25 - Adjustment disorder with mixed disturbance of emotions and conduct (2) Substance intoxication Diagnosis: Secondary (resolved) ICD Code: F19.929 - Other psychoactive substance use, unspecified with intoxication, unspecified Pt Condition on Discharge: Stable Discharge Disposition: Discharge Home Discharge Instructions Diet Instructions: As Tolerated, No Restrictions Activities you can perform: Weight Bearing as Carlyn Scheduled Appointment: Matt Proctor Appointment Date: Jun 24, 2017 Appointment Time: 730 New Orders: BASIC METABOLIC PROF - 1 Week Continued Medications: Vit W/ Ferrous Fumara (Vitafol-Ob) 65 Mg-1 Mg Tab 1 TAB PO DAILY for 30 Days, #30 TAB 3 Refills Discontinued Medications: Fluoxetine (Prozac) 20 Mg Cap 20 MG PO DAILY, #30 CAP 0 Refills Discharge Time <= 30 minutes Mental Status Examination Appearance: Appropriate Consciousness: Alert Orientation: x4 Motor Activity: Other (No abnormal motor movements noted. No signs of any intoxication or withdrawal noted at this time.) Speech: Unremarkable Language: Adequate Fund of Knowledge: Adequate Attention and Concentration: Adequate Memory: Unremarkable Mood: Appropriate Affect: Appropriate Thought Process & Associations: Intact, Logical, Goal directed, Linear Thought Content: Appropriate Hallucination Type: None Delusion Type: None Suicidal Ideation: No Suicidal Plan: No Suicidal Intention: No Homicidal Ideation: No Homicidal Plan: No Homicidal Intention: No Insight: Fair Judgment: Adequate (fair) Discharge/Advance Care Plan Health Problems: (1) Adjustment disorder with mixed disturbance of emotions and conduct (2) Substance intoxication Goals to promote your health * To prevent worsening of your condition and complications * To maintain your health at the optimal level Directions to meet your goals Take your medications as prescribed Follow your dietary instruction Follow activity as directed Keep your appointments as scheduled Take your immunizations and boosters as scheduled If your symptoms worsen call your PCP, if no PCP go to Urgent Care Center or Emergency Room For 01/02 questions related to your inpatient stay or results of tests pending at discharge, please contact Dr. Fredi Hutchison at Smoking is Dangerous to Your Health. Avoid second hand smoking Fredi Hutchison MD Jun 23, 2017 08:48
[2017-06-23] MEDS ORDERED: POTASSIUM CHLORIDE 20 MEQ CONTROLLED RELEASE TAB PO ONE (09:30)
--- NOTE | 2017-06-23 15:57 | EKG ---
Date Performed: 06/22/2017 Time Performed: 14:05:28 PTAGE: 22 years EKG: Sinus rhythm NORMAL ECG NO PREVIOUS TRACING DOCTOR: Elvis Graham Interpretating Date/Time 06/23/2017 15:55:07
== END 2017-06-23 12:05 | disposition home or self-care (01) | DRG 882 ==
LOC: NEPD 13:21 → NEDA 06-21 10:32 → H260 06-21 16:22
PROVIDERS: ADMIT Psychiatry & Neurology Psychiatry; ATTEND Psychiatry & Neurology Psychiatry
DX: F43.25 Adjustment disorder with mixed disturbance of emotions and conduct (principal); R45.851 Suicidal ideations; Z78.1 Physical restraint status; Z33.1 Pregnant state, incidental; F32.9 Major depressive disorder, single episode, unspecified; F41.9 Anxiety disorder, unspecified; F19.920 Other psychoactive substance use, unspecified with intoxication, uncomplicated; E87.6 Hypokalemia; Z87.891 Personal history of nicotine dependence
CPT/HCPCS: 80053; 80307; 81001; 84702; 85025; 86901; 93005; 96372; J1200; J3486

== ENCOUNTER 2017-10-05 16:21 | Emergency (ER) | payer OTHER ==
[~2017-10-05 16:21] MED LIST changes: -AMOX875T PO; -METR-1 PO
--- NOTE | 2017-10-05 17:28 | PD ---
HPI Date Seen: Oct 05, 2017 Time Seen: 17:28 Travel History International Travel<30 Days: No Contact w/Intl Traveler<30Days: No History of Present Illness HPI Ms. Cr is a 22-year-old at 32/4 weeks gestation presented to the OB ED due to vaginal pressure and swelling in her feet. She stated that the vaginal pressure started 2-3 days ago. She is not feeling any contractions or abdominal pain. She states that the pressure is worse with walking in turning from side to side when lying down. No vaginal bleeding, she is feeling baby move, no dysuria, no headache, no chest pain. She does complain of blurry vision and bright spots in her vision occasionally. She also endorses nausea and vomiting. Weeks Gestation: 32 Para: 0 : 2 History Past Medical History Medical History: Denies Significant Hx Obstetric History Obstetric History 2015- elective by D&C Past Surgical History Narrative Surgical [place] teeth extraction D&C in 2014 Family History Family History: Negative Social History Narrative Social History Lives with her boyfriend Works as a coat check attendant Denies alcohol or illicit drug use Quit smoking cigarettes when she found out she was Alcohol Use: No Tobacco Use: No Substance Abuse: No Allergies-Medications (Allergen,Severity, Reaction): Coded Allergies: No Known Allergies (Verified Adverse Reaction, Unknown, 07/06/17) Home Meds Active Scripts Vit W/ Ferrous Fumara (Vitafol-Ob) 65 Mg-1 Mg Tab, 1 TAB PO DAILY, #30 TAB 11 Refills Prov:Carolina Joiner 07/06/17 Review of Systems General / Constitutional: No: Fever, Chills Eyes: Blurred Vision HENT: No: Headaches Cardiovascular: No: Chest Pain or Discomfort Respiratory: No: Short of Breath Gastrointestinal: Nausea, Vomiting, No: Abdominal Pain Genitourinary: No: Dysuria Musculoskeletal: No: Weakness Skin: No Rash Physical Exam Narrative GENERAL: Well-nourished, well-developed patient. SKIN: Warm and dry. HEAD: Normocephalic and atraumatic. EYES: No scleral icterus. No injection or drainage. ENT: No nasal drainage noted. Mucous membranes pink. Airway patent. NECK: Supple, trachea midline. No JVD. CARDIOVASCULAR: Regular rate and rhythm without murmurs, gallops, or rubs. RESPIRATORY: Breath sounds equal bilaterally. No accessory muscle use. ABDOMEN/GI: Abdomen soft, non-tender, bowel sounds present, no rebound, no guarding Gravid to 32 weeks size GENITOURINARY: External Genitalia: intact and normal in appearance Cervix: posterior Dilatation: closed Effacement: thick Station: high Membranes: intact Uterine Contractions: none FHT's: Category: 1 Baseline: 120s-130s Reactive: yes Variability: moderate Decels: none EXTREMITIES: No cyanosis. pedal edema BACK: Nontender without obvious deformity. No CVA tenderness. NEUROLOGICAL: Awake and alert. Motor and sensory grossly within normal limits. Five out of 5 muscle strength in all muscle groups. Normal speech. Data Data Orders Orders Vital Signs (Adult) .ON ADMISSION (10/05/17 17:27) ^ Labor Status (10/05/17 17:27) Urinalysis - C+S If Indicated (10/05/17 17:27) ^ Non Stress Test (10/05/17 17:27) ^ Hydration (10/05/17 17:27) MDM Plan 22-year-old at 32/4 weeks gestation with concern about vaginal pressure and pedal edema FHT is category 1, reassuring Cervix is long thick and closed -Advised patient that vaginal pressure is normal at this stage of -Advised patient about the signs of labor -UA indicates culture. Will wait for results before prescribing abx. Will call patient with results. Discharge home. Diagnosis Diagnosis: Primary Impression: 32 weeks gestation of Disposition: DISCHARGE HOME Condition: Stable Patient Instructions: General Instructions, Labor (ED), Having Your Baby: The Labor Process (GEN), Movement (ED) Departure Forms: Tests/Procedures Katharine Obrien MD R1 Oct 05, 2017 17:28
[2017-10-05 18:10] LABS: BACTERIA, URINE OCC /hpf; BILIRUBIN, URINE NEG (NEG); BLOOD, URINE NEG (NEG); GLUCOSE,URINE NEG (NEG); KETONE, URINE NEG (NEG); NITRITE,URINE NEG (NEG); SQUAMOUS EPITHELIAL CELL URINE 20 /hpf (0-5); URINE COLOR LIGHT-YELLOW (YELLW/STRAW); URINE LEUKOCYTE ESTERASE SMALL (NEG)
== END 2017-10-05 18:33 | disposition home or self-care (01) ==
LOC: HOBED 16:21
DX: O26.893 Other specified pregnancy related conditions, third trimester (principal); R10.2 Pelvic and perineal pain; O12.03 Gestational edema, third trimester; H53.8 Other visual disturbances; O21.2 Late vomiting of pregnancy; Z3A.32 32 weeks gestation of pregnancy
CPT/HCPCS: 59025; 81001; 87086

== ENCOUNTER 2017-12-02 17:20 | Inpatient (IN) | payer MEDICAID ==
[~2017-12-02] VITALS: Ht 172.7 cm; Wt 82.0 kg
[2017-12-02] MEDS ORDERED: LACTATED RINGER'S 1000 ML INJ 1,000 ML IV PRN (18:39)
[2017-12-02] MEDS ORDERED: MINERAL OIL 10 ML VIAL TOPICAL PRN (18:45)
[2017-12-02] MEDS ORDERED: SODIUM CHLORID 0.9% 500 ML INJ 500 ML IV PRN (18:45)
[2017-12-02] MEDS ORDERED: CITRIC ACID-SODIUM CITRATE LIQ 30 ML UDC PO SCH (18:45)
[2017-12-02] MEDS ORDERED: LIDOCAINE HCL 1% 50 ML VIAL INFIL PRN (18:45)
[2017-12-02] MEDS ORDERED: OXYTOCIN 30 UNITS-500ML PREMIX 500 ML IV ONE (18:45)
[2017-12-02] MEDS ORDERED: LIDOCAINE HCL 1% 50 ML VIAL I-DERMAL PRN (18:45)
[2017-12-02] MEDS: LACTATED RINGER'S 1000 ML INJ 1,000 ML IV SCH (18:53)
[2017-12-02 18:54] LABS: AUTOMATED NEUTROPHIL # 9.1 TH/MM3 (1.8-7.7); BASOPHIL % 0.3 % (0.0-2.0); EOSINOPHIL # 0.1 TH/MM3 (0-0.4); EOSINOPHIL % 0.6 % (0.0-4.0); HEMATOCRIT 36.2 % (35.0-46.0); LYMPH % 16.5 % (9.0-44.0); LYMPHOCYTE # 2.1 TH/MM3 (1.0-4.8); MEAN CELL VOLUME 83.9 FL (80.0-100.0); MEAN CORPUSCULAR HEMOGLOBIN 27.7 PG (27.0-34.0); MEAN PLATELET VOLUME 9.2 FL (7.0-11.0); MONO % 9.7 % (0.0-8.0); MONOCYTE # 1.2 TH/MM3 (0-0.9); NEUT % 72.9 % (16.0-70.0); PLATELET COUNT 244 TH/MM3 (150-450); RED BLOOD COUNT 4.32 MIL/MM3 (4.00-5.30); RED CELL DISTRIBUTION WIDTH 14.5 % (11.6-17.2); WHITE BLOOD COUNT 12.5 TH/MM3 (4.0-11.0)
[2017-12-02] MEDS ORDERED: SODIUM CHLOR 0.9% 1000 ML INJ 1,000 ML IV PRN (18:59)
[2017-12-02 19:27] LABS: BACTERIA, URINE OCC /hpf; BILIRUBIN, URINE NEG (NEG); BLOOD, URINE MOD (NEG); GLUCOSE,URINE NEG (NEG); KETONE, URINE 10 mg/dL (NEG); NITRITE,URINE NEG (NEG); PH, URINE 7.5 (5.0-8.5); SPERM, URINE RARE; SQUAMOUS EPITHELIAL CELL URINE 6 /hpf (0-5); URINE COLOR YELLOW (YELLW/STRAW); URINE LEUKOCYTE ESTERASE LARGE (NEG)
--- NOTE | 2017-12-02 19:33 | HHI.HP ---
HPI Chief Complaint iol Date Seen: December 02, 2017 Time Seen: 19:28 Travel History International Travel<30 Days: No Contact w/Intl Traveler<30Days: No Known Affected Area: No History of Present Illness HPI pt. is a 22 y/o @ 40 6/7 week for iol. pt. w/o c/o. has been uncomplicated. +FM, no lof/vb, no ctxs. Weeks Gestation: 40 Para: 0 : 1 History Past Medical History Medical History: Denies Significant Hx Obstetric History Obstetric History Past Surgical History Surgical History: No Previous Surgery Family History Family History: Negative Social History Alcohol Use: No Tobacco Use: No Substance Abuse: No Allergies-Medications (Allergen,Severity, Reaction): Coded Allergies: No Known Allergies (Verified Adverse Reaction, Unknown, 07/06/17) Home Meds Active Scripts Vit W/ Ferrous Fumara (Vitafol-Ob) 65 Mg-1 Mg Tab, 1 TAB PO DAILY, #30 TAB 11 Refills Prov:Carolina Joiner 07/06/17 Review of Systems Except as stated in HPI: all other systems reviewed are Neg Physical Exam Narrative GENERAL: Well-nourished, well-developed patient. SKIN: Warm and dry. HEAD: Normocephalic and atraumatic. EYES: No scleral icterus. No injection or drainage. ENT: No nasal drainage noted. Mucous membranes pink. Airway patent. NECK: Supple, trachea midline. No JVD. CARDIOVASCULAR: Regular rate and rhythm without murmurs, gallops, or rubs. RESPIRATORY: Breath sounds equal bilaterally. No accessory muscle use. BREASTS: Bilateral exam showed no masses , no retractions, no nipple discharge. ABDOMEN/GI: Abdomen soft, non-tender, bowel sounds present, no rebound, no guarding Gravid GENITOURINARY: External Genitalia: intact and normal in appearance Dilatation: 1 Effacement: 70 Station: -2 Uterine Contractions: none FHT's: Category: 1 Reactive: 2 Variability: mod EXTREMITIES: No cyanosis or edema. BACK: Nontender without obvious deformity. No CVA tenderness. NEUROLOGICAL: Awake and alert. Motor and sensory grossly within normal limits. Five out of 5 muscle strength in all muscle groups. Normal speech. Caprini VTE Risk Assessment Caprini VTE Risk Assessment: No/Low Risk (score <= 1) Caprini Risk Assessment Model Point Value = 1 Point Value = 2 Point Value = 3 Point Value = 5 Age 41-60 Minor surgery BMI > 25 kg/m2 Swollen legs Varicose veins or History of unexplained or recurrent spontaneous Oral contraceptives or hormone replacement Sepsis (< 1 month) Serious lung disease, including pneumonia (< 1 month) Abnormal pulmonary function Acute myocardial infarction Congestive heart failure (< 1 month) History of inflammatory bowel disease Medical patient at bed rest Age 61-74 Arthroscopic surgery Major open surgery (> 45 min) Laparoscopic surgery (> 45 min) Malignancy Confined to bed (> 72 hours) Immobilizing plaster cast Central venous access Age >= 75 History of VTE Family history of VTE Factor V Leiden Prothrombin [id number] Lupus anticoagulant Anticardiolipin antibodies Elevated serum homocysteine Heparin-induced thrombocytopenia Other congenital or acquired thrombophilia Stroke (< 1 month) Elective arthroplasty Hip, pelvis, or leg fracture Acute spinal cord injury (< 1 month) Prophylaxis Regimen Total Risk Factor Score Risk Level Prophylaxis Regimen 0-1 Low Early ambulation 2 Moderate Order ONE of the following: *Sequential Compression Device (SCD) *Heparin 5000 units SQ BID 3-4 Higher Order ONE of the following medications: *Heparin 5000 units SQ TID *Enoxaparin/Lovenox 40 mg SQ daily (WT < 150 kg, CrCl > 30 mL/min) *Enoxaparin/Lovenox 30 mg SQ daily (WT < 150 kg, CrCl > 10-29 mL/min) *Enoxaparin/Lovenox 30 mg SQ BID (WT < 150 kg, CrCl > 30 mL/min) AND/OR *Sequential Compression Device (SCD) 5 or more Highest Order ONE of the following medications: *Heparin 5000 units SQ TID (Preferred with Epidurals) *Enoxaparin/Lovenox 40 mg SQ daily (WT < 150 kg, CrCl > 30 mL/min) *Enoxaparin/Lovenox 30 mg SQ daily (WT < 150 kg, CrCl > 10-29 mL/min) *Enoxaparin/Lovenox 30 mg SQ BID (WT < 150 kg, CrCl > 30 mL/min) AND *Sequential Compression Device (SCD) Data Data Vital Signs Reviewed: Yes Orders Orders Admit To Inpatient (12/02/17 ) Code Status (12/02/17 18:39) Vital Signs (Adult) .Per protocol (12/02/17 18:39) Activity Oob Ad Maria Esther (12/02/17 18:39) Heart (12/02/17 18:39) Amnioinfusion (12/02/17 18:39) Urinary Catheter Management .ONCE (12/02/17 18:39) Lactated Ringer's 1000 Ml Inj (Lr 1000 M (12/02/17 18:39) Lactated Ringer's 1000 Ml Inj (Lr 1000 M (12/02/17 18:39) Sodium Chlorid 0.9% 500 Ml Inj (Ns 500 M (12/02/17 18:45) Sodium Chlor 0.9% 1000 Ml Inj (Ns 1000 M (12/02/17 18:59) Lidocaine 1% Inj (50 Ml) (Xylocaine 1% I (12/02/17 18:45) Citric Acid-Sodium Citrate Liq (Bicitra (12/02/17 18:45) Fentanyl Inj (Fentanyl Inj) (12/02/17 18:45) Fentanyl Inj (Fentanyl Inj) (12/02/17 18:45) Complete Blood Count With Diff (12/02/17 18:39) Hold Clot (12/02/17 18:39) Abo/Rh Blood Type (12/02/17 18:39) Urinalysis - C+S If Indicated (12/02/17 18:39) Ob/Psych Drug Screen, Urine (12/02/17 18:39) Resp Oxygen Non Rebreathe Mask (12/02/17 ) ^ Epidural / Intrathecal Infus (12/02/17 18:39) Oxytocin 30 Units-500ml Premix (Pitocin (12/02/17 18:45) Lidocaine 1% Inj (50 Ml) (Xylocaine 1% I (12/02/17 18:45) Light Mineral Oil (Muri-Lube Oil) (12/02/17 18:45) Inpatient Certification (12/02/17 ) Specimen To Be Collected PRN (12/02/17 18:39) Specimen To Be Collected PRN (12/02/17 18:39) Activity Oob Ad Maria Esther (12/02/17 18:41) Misoprostol (Cytotec) (12/02/17 20:00) Group B Strep: Negative Labs Laboratory Tests Test 12/02/17 18:00 12/02/17 18:40 White Blood Count 12.5 Red Blood Count 4.32 Hemoglobin 12.0 Hematocrit 36.2 Mean Corpuscular Volume 83.9 Mean Corpuscular Hemoglobin 27.7 Mean Corpuscular Hemoglobin Concent 33.0 Red Cell Distribution Width 14.5 Platelet Count 244 Mean Platelet Volume 9.2 Neutrophils (%) (Auto) 72.9 Lymphocytes (%) (Auto) 16.5 Monocytes (%) (Auto) 9.7 Eosinophils (%) (Auto) 0.6 Basophils (%) (Auto) 0.3 Neutrophils # (Auto) 9.1 Lymphocytes # (Auto) 2.1 Monocytes # (Auto) 1.2 Eosinophils # (Auto) 0.1 Basophils # (Auto) 0.0 CBC Comment DIFF FINAL Differential Comment Assessment/Plan Problem List: (1) Postmaturity , 40-42 weeks gestation ICD Codes: O48.0 - Post-term Assessment and Plan pt. for iol. pt. to have buccal cytotec 25mcg q4 hours. fht reassuring. fentanyl vs epidural for analgesia. Joey Lowe Jr., MD December 02, 2017 19:33
[2017-12-02] MEDS ORDERED: MISOPROSTOL 100 MCG TAB PO SCH (20:00)
[2017-12-02] MEDS: MISOPROSTOL 25 MCG TAB PO SCH (22:52)
[2017-12-03] MEDS ORDERED: fentaNYL 2MCG-BUPIV 0.125% INJ 150 ML EPIDURAL ONE (00:46)
[2017-12-03] MEDS ORDERED: LIDOCAINE 1.5%/EPINEPHrine 1:200,000 PF 5 ML AMP ONE (00:52)
[2017-12-03] MEDS ORDERED: DO NOT ADMINISTER ANTICOAGULANTS PRN (01:00)
[2017-12-03] MEDS ORDERED: fentaNYL 2MCG-BUPIV 0.125% 100 ML EPIDURAL PRN (01:00)
[2017-12-03] MEDS ORDERED: NO SYSTEM NARCOTICS PRN (01:00)
[2017-12-03] MEDS ORDERED: ePHEDrine/NS 25 MG/5 ML SYRINGE IV PUSH PRN (01:30)
[2017-12-03] MEDS: LACTATED RINGER'S 1000 ML INJ 1,000 ML IV SCH ×3 (01:41→18:39)
[2017-12-03] MEDS: MISOPROSTOL 25 MCG TAB PO SCH ×5 (02:58→20:00)
[2017-12-03] MEDS ORDERED: FAMOTIDINE 20 MG/2 ML VIAL IV PUSH ONE (03:15)
[2017-12-03] MEDS: ONDANSETRON ODT 4 MG TAB SL PRN ×3 (08:05→18:09)
--- NOTE | 2017-12-03 08:54 | PD.LABORPN ---
Subjective Subjective Patient stated she has been feeling nauseous overnight. The zofran medication is helping with the nausea. Pt did have vomiting as well. Labor pain is well controlled with epidural. No CP, SOB, chills or fever. Objective Vital Signs Vital Signs Date Time Temp Pulse Resp B/P (MAP) Pulse Ox O2 Delivery O2 Flow Rate FiO2 12/03/17 01:05 16 Objective Pelvic Exam: Dilatation: 3-4 Effacement: 80 Station: -2 Presentation: vertex Membranes: intact Uterine Contractions: contraction every 3mins FHT's: Category: 1 Baseline:120 Reactive: yes Variability:moderate Decels: none Weeks Gestation: 40 Assessment/Plan Problem List: (1) Postmaturity , 40-42 weeks gestation ICD Codes: O48.0 - Post-term Plan: 22 yo F with @ 41 weeks gestation admitted for scheduled induction of labor. IUP at 41 weeks gestation 1. continue to monitor VS 2. category 1, NST reassuring 3. GBS negative 4. cervical check: intact/3-4/80/-2 5. c/w zofran for N/V 6. c/w Cytotec Q4h for labor induction Dw Shruthi Ledesma MD, R1 December 03, 2017 08:54
--- NOTE | 2017-12-03 13:04 | PD.LABORPN ---
Subjective Subjective pt. in bed comfortable w/ epidural. pt s/p 4 doses cytotec. +fm, no lof/vb. irreg ctxs. Objective Vital Signs reviewed Objective Pelvic Exam: Cervix: ant Dilatation: 4 Effacement: 90 Station: 0 Presentation: cephalic Membranes: AROM clear fluid Uterine Contractions: irreg FHT's: Category: 1 Reactive: + Variability: mod Weeks Gestation: 40 Pt started active labor?: No Medical induction of labor?: Yes Artificial rupture of membrane: Yes Assessment/Plan Problem List: (1) Postmaturity , 40-42 weeks gestation ICD Codes: O48.0 - Post-term Plan: 22 yo F with @ 41 weeks gestation admitted for scheduled induction of labor. IUP at 41 weeks gestation 1. continue to monitor VS 2. category 1, NST reassuring 3. GBS negative 4. cervical check: intact/3-4/80/-2 5. c/w zofran for N/V 6. c/w Cytotec Q4h for labor induction Dw Dr. Lowe Assessment and Plan pt. s/p arom. pt. to have cyotec 25 mcg. fht reassuring. Joey Lowe Jr., MD December 03, 2017 13:04
[2017-12-03] MEDS ORDERED: fentaNYL 2MCG-BUPIV 0.125% 150 ML EPIDURAL PRN (13:15)
[2017-12-03 13:51] VITALS: RESP 16
[2017-12-03] MEDS ORDERED: LIDOCAINE HCL 1% PF 30 ML VIAL ONE (14:12)
[2017-12-03] MEDS ORDERED: OXYTOCIN 30 UNITS-500ML PREMIX 500 ML ONE (14:38)
[2017-12-03] MEDS ORDERED: OXYTOCIN 30 UNITS/NS 500ML PREMIX IV PRN (18:45)
--- NOTE | 2017-12-03 21:17 | PD.OB.DELI ---
Weeks gestation: 40 Pt started active labor?: No Medical induction of labor?: Yes Artificial rupture of membrane: Yes Anesthesia: Epidural Episiotomy: Midline Vaginal Delivery: Normal Presentation: Occiput anterior Nuchal Cord: None Delayed cord clamping (45 sec): Yes : Male Delivery date: December 03, 2017 Delivery time: 20:58 One Minute : 8 Five Minute : 9 Weight: 3755 gm Placenta: Spontaneous delivery, Intact Laceration: Episiotomy, 2 deg Repair: Chromic running Estimated blood loss: 200 cc Silvestre Cr II, MD December 03, 2017 21:17
[2017-12-03] MEDS ORDERED: SODIUM CHLORIDE 0.9% FLUSH 10 ML FLUSH IV FLUSH PRN (21:30)
[2017-12-03] MEDS ORDERED: OXYTOCIN 30 UNITS-500ML PREMIX 500 ML IV SCH (22:00)
[2017-12-03] MEDS ORDERED: ZOLPIDEM TARTRATE 5 MG TAB PO PRN (22:00)
[2017-12-03] MEDS ORDERED: ACETAMINOPHEN 325 MG TAB PO PRN (22:00)
[2017-12-03] MEDS ORDERED: BENZOCAINE 20% TOPICAL SPRAY 60 ML CAN TOPICAL PRN (22:00)
[2017-12-03] MEDS ORDERED: ONDANSETRON ODT 4 MG TAB PO PRN (22:00)
[2017-12-03] MEDS ORDERED: ALUMINUM/MAGNESIUM/SIMETH 30 ML CUP PO PRN (22:00)
[2017-12-03] MEDS ORDERED: DIPHTH/TETANUS/ACEL PERTUSSIS (BOOSTER) 0.5 ML VIAL/PFS IM ONE (22:00)
[2017-12-03] MEDS ORDERED: MEASLES, MUMPS, RUBELLA VACCINE 0.5 ML VIAL SQ ONE (22:00)
[2017-12-03] MEDS: oxyCODONE/ACETAMINOPHEN 5 MG/325 MG TAB PO PRN (22:02)
[2017-12-03] MEDS: IBUPROFEN 800 MG TAB PO PRN (22:02)
[2017-12-03] MEDS: DOCUSATE SODIUM 50 MG/SENNA 8.6 MG TAB PO PRN (23:40)
[2017-12-03] MEDS: WITCH HAZEL 50%/GLYCERIN 12.5% 40 PAD JAR TOPICAL PRN (23:40)
[2017-12-04] MEDS: oxyCODONE/ACETAMINOPHEN 5 MG/325 MG TAB PO PRN ×5 (02:13→20:31)
[2017-12-04] MEDS: IBUPROFEN 800 MG TAB PO PRN ×3 (05:44→20:31)
--- NOTE | 2017-12-04 08:54 | HHI.OB ---
Subjective Remarks 22 year old female s/p at 41 wks gestation, PPD 1. AFVSS. Patient reports she is feeling well. Bleeding is decreasing and pain is well- controlled. She is breast feeding and bonding well with baby. Ambulating without difficulties. She is tolerating a diet without nausea or vomiting. She has not had a bowel movement. She has passed gas. Denies chest pain, dysuria, shortness of breath, or calf pain. Objective Vitals/I&O Vital Signs Date Time Temp Pulse Resp B/P (MAP) Pulse Ox O2 Delivery O2 Flow Rate FiO2 12/03/17 13:51 16 12/03/17 13:21 14 Objective Remarks GENERAL: Well-nourished, well-developed patient. CARDIOVASCULAR: Regular rate and rhythm. 2/6 soft blowing/musical LILY at LUSB. RESPIRATORY: Breath sounds equal bilaterally. No accessory muscle use. ABDOMEN/GI: Abdomen soft, non-tender. Fundus: Firm, non-tender at umbilicus. GENITOURINARY: Light to moderate bleeding. EXTREMITIES: No cyanosis or edema, non-tender, without signs of DVT. Medications and IVs Current Medications Medications (Trade) Dose Ordered Sig/Zan Route Start Time Stop Time Status Last Admin Lactated Ringer's 1,000 ml @ 125 mls/hr Q8H IV 12/02/17 18:39 12/03/17 13:40 Lactated Ringer's 1,000 ml @ 3,000 mls/hr Q20M PRN IV 12/02/17 18:39 Sodium Chloride 1,000 ml @ 100 mls/hr Q10H PRN IV 12/02/17 18:59 (Xylocaine 1% Inj (50 ml)) 0.1 ml UNSCH X1 PRN I-DERMAL 12/02/17 18:45 12/05/17 18:44 (Bicitra Liq) 30 ml GUM ROLLING MACHINE OPERATOR PO 12/02/17 18:45 12/06/17 18:44 (fentaNYL INJ) 50 mcg Q1H PRN IV PUSH 12/02/17 18:45 (fentaNYL INJ) 100 mcg Q1H PRN IV PUSH 12/02/17 18:45 (Xylocaine 1% Inj (50 ml)) 10 ml UNSCH X1 PRN INFIL 12/02/17 18:45 12/04/17 18:44 (Muri-Lube Oil) 10 ml UNSCH PRN TOPICAL 12/02/17 18:45 (Cytotec) 25 mcg Q4HR PO 12/03/17 00:00 12/03/17 13:01 Fentanyl/ Bupivacaine/ Sodium Chlor 150 ml @ 0 mls/hr TITRATE PRN EPIDURAL 12/03/17 13:15 12/03/17 13:21 Oxytocin 500 ml @ 0 mls/hr TITRATE PRN IV 12/03/17 18:45 12/03/17 18:47 (NS Flush) 2 ml BID IV FLUSH 12/04/17 09:00 (NS Flush) 2 ml UNSCH PRN IV FLUSH 12/03/17 21:30 (Tylenol) 650 mg Q4H PRN PO 12/03/17 22:00 (Motrin) 800 mg Q8H PRN PO 12/03/17 22:00 12/04/17 05:44 (Percocet 5-325 Mg) 1 tab Q4H PRN PO 12/03/17 22:00 12/04/17 05:44 (Americaine 20% Top Spr) 1 spray Q4H PRN TOPICAL 12/03/17 22:00 12/03/17 23:40 (Tucks Pads) 1 applic QID PRN TOPICAL 12/03/17 21:30 12/03/17 23:40 (Jacki-Colace) 2 tab Q12H PRN PO 12/03/17 22:00 12/03/17 23:40 (Ambien) 5 mg HS PRN PO 12/03/17 22:00 (Mag-Al Plus Susp Liq) 15 ml Q8H PRN PO 12/03/17 22:00 (Zofran Odt) 4 mg Q6H PRN PO 12/03/17 22:00 Assessment/Plan Problem List: (1) Postmaturity , 40-42 weeks gestation ICD Codes: O48.0 - Post-term Plan: 22 yo F with @ 41 weeks gestation admitted for scheduled induction of labor. IUP at 41 weeks gestation 1. continue to monitor VS 2. category 1, NST reassuring 3. GBS negative 4. cervical check: intact/3-4/80/-2 5. c/w zofran for N/V 6. c/w Cytotec Q4h for labor induction Dw Dr. Lowe (2) Normal vaginal delivery ICD Codes: O80 - Encounter for full-term uncomplicated delivery Assessment and Plan 22 yo female s/p , PPD 1 - AFVSS - Continue routine care - Motrin PRN pain - Encourage OOB - Pelvic rest x 6 wks - Contraception: TBD - Anticipate D/C 12/05 Kiko Penny MD R2 December 04, 2017 08:54
[2017-12-04] MEDS ORDERED: SODIUM CHLORIDE 0.9% FLUSH 10 ML FLUSH IV FLUSH SCH (09:00)
[2017-12-04] MEDS: DOCUSATE SODIUM 50 MG/SENNA 8.6 MG TAB PO PRN (16:36)
[2017-12-04] MEDS: WITCH HAZEL 50%/GLYCERIN 12.5% 40 PAD JAR TOPICAL PRN (22:36)
[2017-12-05] MEDS: oxyCODONE/ACETAMINOPHEN 5 MG/325 MG TAB PO PRN (05:03)
[2017-12-05] MEDS: IBUPROFEN 800 MG TAB PO PRN (05:03)
[2017-12-05] MEDS: DOCUSATE SODIUM 50 MG/SENNA 8.6 MG TAB PO PRN (05:14)
[2017-12-05] MEDS ORDERED: OXYC1TAB63 PO (06:52)
[2017-12-05] MEDS ORDERED: IBUP1TAB7 PO (06:52)
--- NOTE | 2017-12-05 06:53 | HHI.DCPOC ---
Discharge Care Plan Diagnosis: (1) Normal vaginal delivery (2) Postmaturity , 40-42 weeks gestation Report Symptoms to Your Doctor -Temperature above 100.5 degrees -Redness, of incision or excessive or foul smelling drainage -Unusual pain or calf pain -Increased vaginal bleeding -Painful or difficulty urinating -Feelings of extreme sadness or anxiety after 2 weeks Goals to Promote Your Health * To prevent worsening of your condition and complications * To maintain your health at the optimal level Directions to Meet Your Goals Take your medications as prescribed Follow your dietary instruction Follow activity as directed Ensure plenty of rest for recovery Drink fluids for hydration Keep your appointments as scheduled Take your immunizations and boosters as scheduled If your symptoms worsen call your PCP, if no PCP go to Urgent Care Center or Emergency Room Smoking is Dangerous to Your Health. Avoid second hand smoke Call the 24-hour crisis hotline for domestic abuse at Kiko Penny MD R2 December 05, 2017 06:53
--- NOTE | 2017-12-05 09:09 | HHI.OB ---
Subjective Remarks 22 year old female s/p at 41 wks gestation, PPD 2. AFVSS. Patient reports she is feeling well. Bleeding is decreasing and pain is well- controlled. She is breast feeding and bonding well with baby. Ambulating without difficulties. She is tolerating a diet without nausea or vomiting. She has not had a bowel movement. She has passed gas. Denies chest pain, dysuria, shortness of breath, or calf pain. Objective Objective Remarks GENERAL: Well-nourished, well-developed patient. CARDIOVASCULAR: Regular rate and rhythm. 2/6 soft blowing/musical LILY at LUSB. RESPIRATORY: Breath sounds equal bilaterally. No accessory muscle use. ABDOMEN/GI: Abdomen soft, non-tender. Fundus: Firm, non-tender at umbilicus. GENITOURINARY: Light to moderate bleeding. EXTREMITIES: No cyanosis or edema, non-tender, without signs of DVT. Medications and IVs Current Medications Medications (Trade) Dose Ordered Sig/Zan Route Start Time Stop Time Status Last Admin Lactated Ringer's 1,000 ml @ 125 mls/hr Q8H IV 12/02/17 18:39 12/03/17 13:40 Lactated Ringer's 1,000 ml @ 3,000 mls/hr Q20M PRN IV 12/02/17 18:39 Sodium Chloride 1,000 ml @ 100 mls/hr Q10H PRN IV 12/02/17 18:59 (Xylocaine 1% Inj (50 ml)) 0.1 ml UNSCH X1 PRN I-DERMAL 12/02/17 18:45 12/05/17 18:44 (Bicitra Liq) 30 ml ACCOUNTS RECEIVABLE ASSOCIATE PO 12/02/17 18:45 12/06/17 18:44 (fentaNYL INJ) 50 mcg Q1H PRN IV PUSH 12/02/17 18:45 (fentaNYL INJ) 100 mcg Q1H PRN IV PUSH 12/02/17 18:45 (Muri-Lube Oil) 10 ml UNSCH PRN TOPICAL 12/02/17 18:45 (Cytotec) 25 mcg Q4HR PO 12/03/17 00:00 12/03/17 13:01 Fentanyl/ Bupivacaine/ Sodium Chlor 150 ml @ 0 mls/hr TITRATE PRN EPIDURAL 12/03/17 13:15 12/03/17 13:21 Oxytocin 500 ml @ 0 mls/hr TITRATE PRN IV 12/03/17 18:45 12/03/17 18:47 (NS Flush) 2 ml BID IV FLUSH 12/04/17 09:00 (NS Flush) 2 ml UNSCH PRN IV FLUSH 12/03/17 21:30 (Tylenol) 650 mg Q4H PRN PO 12/03/17 22:00 (Motrin) 800 mg Q8H PRN PO 12/03/17 22:00 12/05/17 05:03 (Percocet 5-325 Mg) 1 tab Q4H PRN PO 12/03/17 22:00 12/05/17 05:03 (Americaine 20% Top Spr) 1 spray Q4H PRN TOPICAL 12/03/17 22:00 12/03/17 23:40 (Tucks Pads) 1 applic QID PRN TOPICAL 12/03/17 21:30 12/04/17 22:36 (Jacki-Colace) 2 tab Q12H PRN PO 12/03/17 22:00 12/05/17 05:14 (Ambien) 5 mg HS PRN PO 12/03/17 22:00 (Mag-Al Plus Susp Liq) 15 ml Q8H PRN PO 12/03/17 22:00 (Zofran Odt) 4 mg Q6H PRN PO 12/03/17 22:00 Assessment/Plan Problem List: (1) Postmaturity , 40-42 weeks gestation ICD Codes: O48.0 - Post-term Plan: 22 yo F with @ 41 weeks gestation admitted for scheduled induction of labor. IUP at 41 weeks gestation 1. continue to monitor VS 2. category 1, NST reassuring 3. GBS negative 4. cervical check: intact/3-4/80/-2 5. c/w zofran for N/V 6. c/w Cytotec Q4h for labor induction Dw Dr. Lowe (2) Normal vaginal delivery ICD Codes: O80 - Encounter for full-term uncomplicated delivery Assessment and Plan 22 yo female s/p , PPD 2 - AFVSS - Continue routine care - Motrin PRN pain - Encourage OOB - Pelvic rest x 6 wks - Contraception: desires ParaGuard IUD, will discuss with her NIGHT PATROL INSPECTOR - Anticipate D/C 12/05 Kiko Penny MD R2 December 05, 2017 09:09
== END 2017-12-05 12:55 | disposition home or self-care (01) | DRG 775 ==
LOC: H2EB 17:20 → H1EA 12-03 22:57
PROVIDERS: ADMIT Obstetrics & Gynecology; ATTEND Obstetrics & Gynecology
PROC: 3E0P7VZ Introduction of Hormone into Female Reproductive, Via Natural or Artificial Opening (ICD-10-PCS; 2017-12-02)
PROC: 10E0XZZ Delivery of Products of Conception, External Approach (ICD-10-PCS; principal; 2017-12-03)
PROC: 0W8NXZZ Division of Female Perineum, External Approach (ICD-10-PCS; 2017-12-03)
PROC: 10907ZC Drainage of Amniotic Fluid, Therapeutic from Products of Conception, Via Natural or Artificial Opening (ICD-10-PCS; 2017-12-03)
DX: O48.0 Post-term pregnancy (principal); Z37.0 Single live birth; Z3A.41 41 weeks gestation of pregnancy
CPT/HCPCS: 59025; 80307; 81001; 85025; 86900; 86901; 87086; 90715; J2590; J7120